=== PATIENT | male | born 1970 | race African-American/Black ===

== ENCOUNTER 2025-06-12 09:57 | Emergency (ER) | payer OTHER, SELFPAY ==
[2025-06-12] VITALS (9 sets, daily range): BP systolic 145–171; BP diastolic 86–109; PULSE 70–99; RESP 16–94; TEMP 36.7; O2SAT 93–99; BMI 33.5
--- NOTE | 2025-06-12 10:12 | EX.ED.DYSGE1 ---
HPI History of Present Illness Chief Complaint: General Illness [facility] Medical History (Updated 06/12/25 @ 10:31 by Apple Amador) Prediabetes Home Medications ?Medication ?Instructions ?Recorded ?Last Taken ?Type metformin 500 mg tablet,extended 500 mg PO DAILY 06/12/25 Unknown History release 24 hr Allergy/AdvReac Type Severity Reaction Status Date / Time Fish Containing Products Allergy Mild Rash Verified 06/12/25 09:59 Social History Smoking Status: Never smoker EXAM Physical Exam Const Vital Signs: 06/12/25 09:59 06/12/25 10:26 06/12/25 11:58 Temperature 98.1 F Temperature Source Oral Pulse Rate 99 79 Respiratory Rate 16 16 Respiratory Effort Normal Respiratory Pattern Normal Blood Pressure 167/97 H 158/99 H Blood Pressure Mean 120 118 Pulse Ox 98 99 Oxygen Delivery Method Room Air 06/12/25 13:00 06/12/25 15:00 06/12/25 17:00 Temperature Temperature Source Pulse Rate 84 82 83 Respiratory Rate 16 20 H 16 Respiratory Effort Respiratory Pattern Blood Pressure 163/86 H 148/108 H 145/105 H Blood Pressure Mean 111 121 118 Pulse Ox 99 97 97 Oxygen Delivery Method Room Air Room Air 06/12/25 19:00 06/12/25 21:00 Temperature Temperature Source Pulse Rate 70 84 Respiratory Rate 16 16 Respiratory Effort Respiratory Pattern Blood Pressure 161/99 H 171/109 H Blood Pressure Mean 119 129 Pulse Ox 93 94 Oxygen Delivery Method Room Air MDM MDM MDM Narrative Medical decision making narrative: HISTORY OF PRESENT ILLNESS: Chief complaint: Weakness 55-year-old man presents with a myriad of symptoms including lip numbness/tingling, scratchy throat, numbness and tingling to bilateral lower extremities. States he had a flu/shingles vaccine on 06/01/2025. He thinks this could be related. He further states 2 days ago he developed worsening weakness. Notes numbness and tingling initially started in his feet and has progressed to his mid tibia. Also notes numbness and tingling around the lips and fingers. Denies any falls or trauma. Denies any past medical problems such as stroke or heart attack. Denies any bleeding diathesis. Notes travel to [facility] 3 weeks ago with denies any diarrheal illnesses. Denies any chest pain, shortness of breath, abdominal pain. Does note he felt feverish last night but did not take his temperature. Denies headache or neck stiffness. Patient denies any saddle anesthesia, urinary retention, bowel or bladder incontinence, lower extremity weakness, fever or IV drug use, no recent spinal manipulation or surgery, no recent urinary catheterization. Denies any other urinary complaint such as frequency, urgency or dysuria. REVIEW OF SYSTEMS: Pertinent positives: Numbness, tingling, leg weakness, sore throat Pertinent negatives: As per HPI PHYSICAL EXAM: Nursing triage notes reviewed, Vital signs reviewed Constitutional: please see [facility] HENT: MMM Eyes: Pupils equal round and reactive to light, Extraocular muscles intact Neck: No stridor, no JVD, full neck ROM Lungs: Clear to auscultation, No wheezing or rales. No increased work of breathing, no conversational dyspnea, no accessory muscle use, no nasal flaring. No respiratory distress noted Heart: Regular rate and rhythm, No murmurs, No rubs and No gallops, 2+ distal pulses (radial, femoral, posterior tibial) in all extremities Abdomen: Soft, there is no tenderness, rigidity, rebound or guarding, no obvious peritoneal signs, no palpable pulsatile abdominal masses, no auscultated abdominal bruit : No CVAT Extremities: No edema Neuro: Alert and oriented x3, neuro exam at baseline, cranial nerves II through XII are intact. No pain with extraocular muscle movement. There is negative test of skew. 5 of 5 strength in upper and lower extremities in flexion extension. Intact sensation to light touch in upper and lower extremity dermatomes. No truncal or extremity ataxia. No dysdiadochokinesia. Normal gait. 2+ reflexes in upper and lower extremities. No meningeal signs. Negative Babinski. NIH of 0. While the patient had a nonfocal neurologic exam while seated upon standing to test his gait he was extremely ataxic and diffusely weak. This is all new for him in the last several days. Skin: No rash or lesions noted MEDICAL DECISION MAKING: Chief Complaint: please see HPI External records reviewed: Reviewed prior lab studies. Reviewed prior medications. Reviewed allergies Factors affecting care: none reported Social determinants of health: none History obtained from others: none Consults: none [facility] Narrative: The patient was initially hemodynamically stable, afebrile and nontoxic-appearing. Exam without seated focal deficit however with ambulation patient displays significant bilateral leg weakness and ataxia. I considered the following differential diagnosis: Electrolyte disturbance, dehydration, kidney dysfunction, arrhythmia, vitamin deficiency, viral illness, autoimmune spine inflammation, epidural abscess, cauda equina, conus medullaris, I obtained a broad lab and imaging workup to further determine if the patient was suffering from a life-threatening etiology. Given the patient's report of ascending numbness and tingling I was concerned about a spinal pathology so obtained MRIs of the spines. Was also concern about intracranial abnormality so obtained a CT scan of the brain. I obtained distal labs including inflammatory markers. Initially treated with normal saline. ALL IMAGES (IF OBTAINED) HAVE BEEN PERSONALLY REVIEWED AND INTERPRETED BY MYSELF. EKG with normal sinus rhythm rate 82, left axis deviation, normal intervals, no STEMI ESR elevated consistent with systemic inflammation CBC without leukocytosis, severe anemia, no thrombocytopenia. CMP without evidence of acute kidney injury, significant electrolyte abnormality, anion gap to suggest end organ hypo-perfusion, no evidence of metabolic acidosis with a normal bicarbonate, no evidence of hepatobiliary obstructive pathology. High-sensitivity troponin is negative, no evidence of myocardial ischemia Lipase is wnl indicating no pancreatic inflammation. B12 and folate are not deficient I have personally reviewed the patient's chest x-ray. Chest x-ray is unremarkable for pulmonary edema, pneumothorax, pneumonia or focal cardiopulmonary abnormality. CT scan of the head is negative MRI of the cervical, thoracic, lumbar spine are negative for signs of abnormal enhancement, epidural abscess or other acute spinal abnormalities. COVID/flu/RSV negative Procedure: Lumbar puncture Indications: Lower extremity weakness Procedure: Patient was prepped and draped in the usual sterile fashion. Cleansed multiple times of Betadine. Sterile technique was observed throughout the duration procedure. Placed a small wheal of lidocaine to anesthetize the area in the midline approximately L3/L4 interspace. I advanced the spinal introducer needle into the patient's L3/L4 interspace with appreciable pop and return of initially serosanguineous to clear fluid. I obtained for tubes for samples and sent to the lab. Patient tolerated procedure well. Laid in supine position after procedure. CSF studies showed no definitive signs of meningitis or Guillain-Orozco? syndrome. The patient will need inpatient mission given difficulty with ambulating. Discussed with hospitalist here Dr. Holcomb, complementing the patient given lack of inpatient neurology coverage and specialty care. Discussed with [facility] who will get back to us with a hospitalist versus neurologist for admission. Discussed with Dr. Bennett (Internal medicine [facility]) he agreed admit the patient to excepted transfer. Awaiting bed placement and transfer at this time. Signed out to overnight physician pending transfer. The patient and/or family, caregivers express understanding. The patient and/or family, caregivers agrees with the plan. Shared decision making: I will have a discussion with the patient and or visitors regarding risk/benefits of further testing or admission. They will be made aware of of the risk/benefits inherent in this decision they will be given the opportunity to voice understanding. Total critical care time today provided was at least 35 minutes. This excludes separately billable procedures. Critical care time (if documented) is secondary to the patient having high probability of clinically significant/life threatening deterioration in the patient's condition which required my urgent intervention. Impression: 1. Peripheral neuropathy 2. Gait ataxia 3. Inability to ambulate Dispo: Transferred to [facility] This note was generated with [employer] dictation software. It may contain incorrect words, spelling, and punctuation that were not noted in review of the chart prior to signing. Lab Data Labs: Laboratory Results - last 24 hr 06/12/25 06/12/25 06/12/25 10:55 12:50 16:10 WBC 7.3 RBC 5.32 Hgb 15.0 Hct 44.4 MCV 83.5 MCH 28.2 MCHC 33.8 RDW Std Deviation 42.8 RDW Coeff of Teresa 14.1 Plt Count 311 MPV 9.9 Immature Gran % (Auto) 0.300 Neut % (Auto) 69.7 Lymph % (Auto) 22.0 Luce % (Auto) 7.2 Eos % (Auto) 0.5 Baso % (Auto) 0.3 Absolute Neuts (auto) 5.1 Absolute Lymphs (auto) 1.61 Nucleated RBC % 0 ESR 65 H Sodium 139 Potassium 3.7 Chloride 105 Carbon Dioxide 21.8 Anion Gap 13 BUN 6 Creatinine 0.82 Estim Creat Clear Calc 124.18 Est GFR (MDRD) Non-Af 104 BUN/Creatinine Ratio 7.8 L Glucose 112 H Calcium 9.4 Total Bilirubin 0.40 AST 54 H ALT 48 H Alkaline Phosphatase 99 Troponin T High Sens 8 Troponin T Hi Sens 2 Hr 7 Troponin T Hi Sens 4Hr 7 Total Protein 8.1 Albumin 3.8 Globulin 4.3 H Albumin/Globulin Ratio 0.9 Lipase 26 Vitamin B12 1137 H Serum Folate 6.98 CSF Appearance CSF Color CSF WBC CSF RBC CSF Cell Count Tube # CSF Total Cell Counted CSF Neutrophils CSF Lymphocytes CSF Monocytes CSF Comment CSF Glucose CSF Total Protein 06/12/25 17:30 WBC RBC Hgb Hct MCV MCH MCHC RDW Std Deviation RDW Coeff of Teresa Plt Count MPV Immature Gran % (Auto) Neut % (Auto) Lymph % (Auto) Luce % (Auto) Eos % (Auto) Baso % (Auto) Absolute Neuts (auto) Absolute Lymphs (auto) Nucleated RBC % ESR Sodium Potassium Chloride Carbon Dioxide Anion Gap BUN Creatinine Estim Creat Clear Calc Est GFR (MDRD) Non-Af BUN/Creatinine Ratio Glucose Calcium Total Bilirubin AST ALT Alkaline Phosphatase Troponin T High Sens Troponin T Hi Sens 2 Hr Troponin T Hi Sens 4Hr Total Protein Albumin Globulin Albumin/Globulin Ratio Lipase Vitamin B12 Serum Folate CSF Appearance CLEAR CSF Color COLORLESS CSF WBC 1.000 H CSF RBC 17 H CSF Cell Count Tube # 4 CSF Total Cell Counted TNP CSF Neutrophils 13 H CSF Lymphocytes 37 L CSF Monocytes 50 H CSF Comment May follow CSF Glucose 61 CSF Total Protein 71.6 H Radiography Diagnostic Testing: Clinical Impression(s) from Imaging Studies Brain CT 06/12/25 10:37 IMPRESSION: NORMAL NONCONTRAST HEAD CT. Opacification of the right ethmoid sinus in the right frontal sinus. Reading Location: [facility] Chest X-Ray 06/12/25 11:07 IMPRESSION: Lungs are hypoinflated, but appear clear of acute disease. No pleural effusion or pneumothorax is seen. The cardiomediastinal silhouette is within the normal range. No acute osseous process is seen. Negative examination. Reading Location: [facility] Cervical Spine MRI 06/12/25 13:40 IMPRESSION: 1. Multilevel degenerate spondylosis resulting in variable neural foraminal and spinal canal stenosis as described at each level above. 2. Scattered Modic type 2 changes. 3. Chronic compression deformities of C5 and C6. 4. Mild cervical spine straightening suggestive of paraspinal muscle stiffness or spasm. 5. Grade 1 retrolisthesis of C5 on C6 by 3 mm. 6. No areas of abnormal contrast enhancement. Reading Location: [facility] Thoracic Spine MRI 06/12/25 14:15 IMPRESSION: 1. Minimal thoracic spine degenerative changes. 2. No acute process is seen. Reading Location: [place] [address] Lumbar Spine MRI 06/12/25 14:35 IMPRESSION: 1. No acute process is seen. 2. Multilevel lumbar degenerative disc disease as described. Reading Location: [place] [address] Discharge Plan Triage Chief Complaint: General Illness ED Provider: Artemio Baez Dx/Rx/DC Orders Prescriptions: No Action metformin 500 mg tablet extended release 24 hr 500 mg PO DAILY Primary Care Provider: Ghassan Robledo Referrals: Ghassan Robledo MD [Primary Care Provider] - Print Language: Mauritanian
--- NOTE | 2025-06-12 10:37 | EKG12_ITS ---
Test Reason : GEN ILLNESS Blood Pressure : */* mmHG Vent. Rate : 82 BPM Atrial Rate : 82 BPM P-R Int : 142 ms QRS Dur : 94 ms QT Int : 376 ms P-R-T Axes : 28 -6 39 degrees QTcB Int : 439 ms Normal sinus rhythm Normal ECG Confirmed by LILY SCHOFIELD, KRISTINA ([id number]), website/blog editor KAYCEE GARDNER ([id number]) on 06/15/2025 7:33:30 AM Referred By: Confirmed By: KRISTINA BAUTISTA MD
--- NOTE | 2025-06-12 10:37 | CT_ITS ---
PROCEDURE: BRAIN/HEAD WITHOUT CONTRAST 06/12/2025 REASON FOR EXAM: WEAKNESS TECHNIQUE: BRAIN/HEAD WITHOUT CONTRAST Coronal and Sagittal reconstruction series were provided. One or more dose reduction techniques were used (e.g., Automated exposure control, adjustment of the mA and/or kV according to patient size, use of iterative reconstruction technique. RADIATION DOSE SUMMARY: CTDlvol: 44.99 mGy DLP: 796.11 mGycm COMPARISON: None FINDINGS: Brain: Normal CSF Spaces: Normal Sinuses/Mastoids: There is opacification of the right ethmoid sinus with thinning of the bony septations. Partial opacification of the right frontal sinus. Bones: No fracture. CT/Brain/Head without Contrast IMPRESSION: NORMAL NONCONTRAST HEAD CT. Opacification of the right ethmoid sinus in the right frontal sinus. Reading Location: [id number]
--- NOTE | 2025-06-12 11:07 | RAD_ITS ---
PROCEDURE: CHEST 1 VIEW (PORTABLE) 06/12/2025 REASON FOR EXAM: WEAKNESS TECHNIQUE: Frontal view of the chest. COMPARISON: None. RAD/Chest 1 View (Portable) IMPRESSION: Lungs are hypoinflated, but appear clear of acute disease. No pleural effusion or pneumothorax is seen. The cardiomediastinal silhouette is within the normal range. No acute osseous process is seen. Negative examination. Reading Location: [place] [id number]
[2025-06-12 11:11] LABS: Hematocrit 44.4 % (40-54); Hemoglobin 15.0 g/dL (13.0-16.5); Immature Granulocytes Count 0.020 X10^3/uL (0.0-0.0); Mean Corp Hgb Conc 33.8 g/dL (32-36); Mean Corpuscular Volume 83.5 fL (80-94); Mean Platelet Vol. 9.9 fl (6.2-12.0); NRBC Flagged by Analyzer 0 % (0-5); Platelet Count 311 K/mm3 (150-450); RBC Distribution Width CV 14.1 % (11.6-14.6); RBC Distribution Width SD 42.8 fl (35.1-43.9); Red Blood Count 5.32 M/mm3 (4.6-6.2); White Blood Count 7.3 K/mm3 (4.4-11.0)
[2025-06-12] MEDS: 0.9% Normal Saline (500mL Bag) 500 ML 1000 ML IV (11:28)
[2025-06-12 11:42] LABS: AST(SGOT) 54 U/L (<=37); Alanine Aminotransfer ALT/SGPT 48 U/L (<=46); Albumin, Serum 3.8 g/dL (3.5-5.0); Alkaline Phosphatase 99 U/L (40-129); Anion Gap 13 (5-15); BUN 6 mg/dL (4-19); BUN/Creat Ratio 7.8 RATIO (10-20); Calcium,Total 9.4 mg/dL (7.6-11.0); Carbon Dioxide 21.8 mmol/L (21.0-32.0); Chloride 105 mmol/L (98-108); Estimated Creatinine Clearance 124.18 ml/min (50-250); Globulin 4.3 g/dL (2.2-4.2); Glucose 112 mg/dL (70-99); Lipase 26 U/L (13-75); Potassium 3.7 mmol/L (3.3-5.1); Troponin T High Sensitivity 8 ng/L (<=22); Vitamin B12 1137 pg/mL (180-914)
[2025-06-12 12:02] LABS: FOLATES,SERUM (FOLIC ACID) 6.98 ng/mL (4.60-34.80)
[2025-06-12 13:36] LABS: Troponin T High Sens 2 HR 7 ng/L (<=22)
--- NOTE | 2025-06-12 13:40 | MRI_ITS ---
PROCEDURE: SPINE CERVICAL W/WO CONTRAST 06/12/2025 REASON FOR EXAM: ASCENDING ATAXIA, WEAKNESS R/O SPINAL INFLAMMATION TECHNIQUE: SPINE CERVICAL W/WO CONTRAST Multiplanar and multisequence images were obtained with intravenous gadolinium-based contrast administration. CONTRAST: 20 mm IV Clariscan COMPARISON: Same day MRI thoracic spine. FINDINGS: Vertebrae: Chronic compression deformity of C5 with a proximally 30% height loss and of C6 with a proximally 20% height loss. The remaining cervical vertebral body heights are preserved. Scattered Modic type 2 changes are seen throughout the cervical spine. Alignment: Mild straightening of the cervical spine suggestive of paraspinal muscle stiffness or spasm. Grade 1 retrolisthesis of C5 on C6 by approximately 3 mm. No traumatic subluxation. Spinal Cord: Cervical spinal cord is of normal size and signal intensities. No cervical spinal cord lesions are identified. C2-3: Unremarkable C3-4: Mild 1.5 mm right posterior disc bulging resulting in mild right neural foraminal and spinal canal narrowing. C4-5: Mild right facet joint/ligamentum flavum hypertrophy results in mild right neural foraminal stenosis. No significant left neural foraminal or spinal canal stenosis. C5-6: Moderate 2.3 mm posterior disc bulging resulting in moderate bilateral neural foraminal stenosis and mild spinal canal stenosis measuring 6.0 mm AP. C6-7: Mild right facet joint/ligamentum flavum hypertrophy results in mild right neural foraminal stenosis. No significant left neural foraminal or spinal canal stenosis. C7-T1: Unremarkable Postcontrast images: No areas of abnormal contrast enhancement identified. MRI/Spine Cervical W/WO Contrast IMPRESSION: 1. Multilevel degenerate spondylosis resulting in variable neural foraminal and spinal canal stenosis as described at each level above. 2. Scattered Modic type 2 changes. 3. Chronic compression deformities of C5 and C6. 4. Mild cervical spine straightening suggestive of paraspinal muscle stiffness or spasm. 5. Grade 1 retrolisthesis of C5 on C6 by 3 mm. 6. No areas of abnormal contrast enhancement. Reading Location: [facility]
--- NOTE | 2025-06-12 14:15 | MRI_ITS ---
PROCEDURE: SPINE THORACIC W/WO CONTRAST 06/12/2025 REASON FOR EXAM: ASCENDING ATAXIA, WEAKNESS R/O SPINAL INFLAMMATION TECHNIQUE: Thoracic spine MRI without and with intravenous gadolinium-based contrast. Multiplanar and multisequence images were obtained. CONTRAST: Clariscan VOLUME: 20mL IV. COMPARISON: None. FINDINGS: Vertebrae: Thoracic vertebral body heights are preserved. Bone marrow signal is unremarkable. Alignment: Normal. No spondylolisthesis. Spinal Cord: The thoracic cord shows normal signal throughout. No area of abnormal enhancement is seen. Disc spaces: Minimal degenerative changes. No significant disc bulge or herniation is seen. Paraspinal Tissues: Unremarkable. Postcontrast images: No area of abnormal postcontrast enhancement is seen. MRI/Spine Thoracic W/WO Contrast IMPRESSION: 1. Minimal thoracic spine degenerative changes. 2. No acute process is seen. Reading Location: [place] [address]
--- NOTE | 2025-06-12 14:35 | MRI_ITS ---
PROCEDURE: SPINE LUMBAR W/WO CONTRAST 06/12/2025 REASON FOR EXAM: ASCENDING ATAXIA, WEAKNESS R/O SPINAL INFLAMMATION TECHNIQUE: SPINE LUMBAR W/WO CONTRAST Multiplanar and multisequence images were obtained without and with intravenous gadolinium-based contrast administration. CONTRAST: Clariscan VOLUME: 20 mL intravenous COMPARISON: None. FINDINGS: Vertebrae: Lumbar vertebral body heights are preserved. On sagittal images, disc degeneration is seen at the L3-L4 and L4-L5 level, both of which show at least mild disc narrowing, as well. Alignment: Normal. No spondylolisthesis. Conus Medullaris: Unremarkable appearance, terminating at the L1 level. L1-2: No significant spinal canal stenosis or neural foraminal narrowing is seen. L2-3: No significant spinal canal stenosis or neural foraminal narrowing is seen. L3-4: Mild vertebral body osteophytosis is seen. Mild posterior facet and ligamentum flavum hypertrophy is seen on the right. A mild disc bulge is asymmetrically greater to the right. No significant degree of spinal canal stenosis or neural foraminal narrowing is seen. L4-5: Mild posterior facet and ligamentum flavum hypertrophy is noted, [id number]-left. Mild broad-based disc protrusion is asymmetrically greater to the right. No significant degree of spinal canal stenosis or neural foraminal narrowing is noted. L5-S1: Mild posterior facet hypertrophy is seen, [id number]-right. No significant disc bulge or herniation is seen. No spinal canal stenosis or neural foraminal narrowing is noted. Postcontrast images: Following intravenous contrast administration, no unexpected area of postcontrast enhancement is seen. MRI/Spine Lumbar W/WO Contrast IMPRESSION: 1. No acute process is seen. 2. Multilevel lumbar degenerative disc disease as described. Reading Location: [place] [id number]
[2025-06-12 16:56] LABS: Troponin T High Sens 4 HR 7 ng/L (<=22)
[2025-06-12] MEDS: Lidocaine 1%/Epi 1:100 (30ml) 30 ML VIAL INFILT (17:30)
[2025-06-12 18:39] LABS: Glucose Spinal Fluid 61 mg/dL (40-75); Protein Spinal Fluid 71.6 mg/dL (15.0-45.0)
[2025-06-12 18:40] LABS: Auto B Fluid Analyzer BKGD Ct COUNTS W/IN LIMITS (W/IN LIMITS); Tested Tube # 4
[2025-06-12 18:41] LABS: Appearance CSF (character) CLEAR (Clear); CSF Color COLORLESS (Colorless); RBC Count, Spinal Fluid 17 /mm-3 (None seen); White Count, CSF 1.000 10^3/uL (0.000-0.005)
[2025-06-12 19:01] LABS: Body Fluid QC Type(s) BF1 BF2; Neutrophils,CSF 13 % (0 - 6)
[2025-06-12] MEDS: Lidocaine 2% Viscous15 ML UDC 15 ML PO (22:24)
--- NOTE | 2025-06-12 23:46 | ED.RN ---
report called to Alcides MAYER at [facility].
[2025-06-13 04:07] LABS: CRP, High Sensitivity 16.15 mg/L (0.00-3.00)
== END 2025-06-12 23:46 | disposition short-term general hospital (02) ==
LOC: ED 10:42
PROVIDERS: Emergency Provider Emergency Medicine; PCP Family Medicine; Visit Provider Emergency Medicine
DX: R26.0 Ataxic gait (principal); R53.1 Weakness; G62.9 Polyneuropathy, unspecified; R73.03 Prediabetes; Z79.84 Long term (current) use of oral hypoglycemic drugs; Z79.899 Other long term (current) drug therapy; R20.0 Anesthesia of skin; R20.2 Paresthesia of skin
CPT/HCPCS: 62270; 70450; 71045; 72156; 72157; 72158; 80053; 82607; 82746; 82945; 83690; 84157; 84484; 85025; 85652; 86141; 87070; 87205; 87449; 87529; 87631; 87798; 87899; 89050; 89051; 93005; 96360; 96372; 99285; A9575; A4216